=== PATIENT | male | born 2000 | race Caucasian/White ===

== ENCOUNTER 2024-06-24 12:36 | Emergency (ER) | payer BC ==
[2024-06-24] MEDS: Lidocaine 1% 5 ML VIAL INJECT STA (12:56)
[2024-06-24] MEDS: Diphtheria,Pertussis(Acell),Tetanus Vaccine 0.5 ML Syringe IM ONE (13:24)
== END 2024-06-24 13:40 | disposition home or self-care (01) ==
LOC: MW.ED 12:36
DX: S61.012A Laceration without foreign body of left thumb without damage to nail, initial encounter (principal); Z75.8 Other problems related to medical facilities and other health care; Z23 Encounter for immunization; W26.8XXA Contact with other sharp object(s), not elsewhere classified, initial encounter; Y93.G1 Activity, food preparation and clean up
CPT/HCPCS: 12001; 90471; 90715; 99282-25; 99283; J3490

== ENCOUNTER 2024-06-29 10:26 | Emergency (ER) | payer BC | END 2024-06-29 12:02 | disposition left against medical advice (07) | LOC: MW.ED 10:26 | DX: S61.012D Laceration without foreign body of left thumb without damage to nail, subsequent encounter (principal); Z48.02 Encounter for removal of sutures | CPT/HCPCS: 99281 ==